=== PATIENT | male | born 1990 | race Caucasian/White ===

== ENCOUNTER 2017-05-28 11:26 | Emergency (ER) | payer OTHER ==
[~2017-05-28] VITALS: Ht 175.3 cm; Wt 64.4 kg
[~2017-05-28 11:26] MED LIST: AMOXICILLIN500 MG PO; ANBESOL9 GM MM; CLINDAMYCIN HC300 MG PO; KEFLEX500 MG PO; MOTRIN600 MG PO; MOTRIN800 MG PO; NAPROSYN500 MG PO; NARCAN4 MG NS; PEN-VEE K,VEET500 MG PO; SUBOXONE 8 MG-1 EAC2 SL; ULTRACET1 TABLET PO
[2017-05-28] MEDS ORDERED: LEVAQUIN750 MG PO (14:43)
[2017-05-28] MEDS ORDERED: PREDNISONE20 MG PO (14:44)
[2017-05-28] MEDS ORDERED: TESSALON PERLE100 MG PO (14:44)
[2017-05-28] MEDS ORDERED: VENTOLIN HFA18 GM IH (14:44)
[2017-05-28 15:06] VITALS: BP 122/76
== END 2017-05-28 15:09 | disposition home or self-care (01) ==
LOC: EME 11:26
DX: J18.9 Pneumonia, unspecified organism (principal); F17.200 Nicotine dependence, unspecified, uncomplicated
CPT/HCPCS: 71020; 99281; 99284

== ENCOUNTER 2017-10-01 15:54 | Emergency (ER) | payer SELFPAY ==
[~2017-10-01] VITALS: Ht 175.3 cm; Wt 66.0 kg
[~2017-10-01 15:54] MED LIST changes: +LEVAQUIN750 MG PO; +PREDNISONE20 MG PO; +TESSALON PERLE100 MG PO; +VENTOLIN HFA18 GM IH
[2017-10-01 18:30] VITALS: BP 117/68
== END 2017-10-01 18:30 | disposition home or self-care (01) ==
LOC: EME 15:54
DX: F19.10 Other psychoactive substance abuse, uncomplicated (principal); F32.9 Major depressive disorder, single episode, unspecified; F17.200 Nicotine dependence, unspecified, uncomplicated
CPT/HCPCS: 90837; 99281; 99285